=== PATIENT | female | born 1945 | race Two or more races ===

== ENCOUNTER 2024-08-28 13:56 | Outpatient (CLI) | payer OTHER | END 2024-08-28 14:08 | disposition home or self-care (01) | LOC: MAMO-SONO 13:56 | PROVIDERS: ATTEND Internal Medicine | DX: N64.4 Mastodynia (principal); Z12.31 Encounter for screening mammogram for malignant neoplasm of breast; Z12.39 Encounter for other screening for malignant neoplasm of breast ==